=== PATIENT | male | born 1985 | race Caucasian/White ===

== ENCOUNTER 2016-11-06 14:23 | Emergency (ER) | payer SELFPAY ==
[2016-11-06 14:39] VITALS: BP 108/67
--- NOTE | 2016-11-06 15:04 | UC ---
Throat Pain/Nasal Anil HPI - HPI Summary HPI Summary: 30 YEAR OLD MALE PRESENTS WITH COMPLAINS OF SORE THROAT, FEVER, BODY ACHES AND CHILLS. - History of Current Complaint Chief Complaint: UCRespiratory Stated Complaint: SORE THROAT Time Seen by Provider: 11/06/16 15:04 Hx Obtained From: Patient Onset/Duration: Sudden Onset Severity: Moderate Pain Scale Used: 0-10 Numeric - 7 Cough: Nonproductive Associated Signs & Symptoms: Positive: Negative - Allergies/Home Medications Allergies/Adverse Reactions: Allergies Allergy/AdvReac Type Severity Reaction Status Date / Time No Known Allergies Allergy Verified 03/25/15 13:57 PMH/Surg Hx/FS Hx/Imm Hx Previously Healthy: Yes - Surgical History Surgical History: None - Family History Known Family History: Positive: None Negative: Hypertension, Diabetes - Social History Alcohol Use: Rare Substance Use Type: None Smoking Status (MU): Light Every Day Tobacco Smoker Type: Cigarettes Amount Used/How Often: 1 PACK Q 3 DAYS - 5-7 cigs day Have You Smoked in the Last Year: Yes Household Exposure Type: Cigarettes - Immunization History Most Recent Tetanus Shot: UTD Review of Systems Constitutional: Negative Skin: Negative Eyes: Negative ENT: Sore Throat, Nasal Discharge, Sinus Congestion Respiratory: Negative Cardiovascular: Negative Gastrointestinal: Negative Genitourinary: Negative Motor: Negative Neurovascular: Negative Musculoskeletal: Negative Neurological: Negative Psychological: Negative All Other Systems Reviewed And Are Negative: Yes Physical Exam Triage Information Reviewed: Yes Vital Signs: Initial Vital Signs Temp 37.4 C 11/06/16 14:37 Pulse 112 11/06/16 14:37 Resp 18 11/06/16 14:37 BP 108/67 11/06/16 14:37 Pulse Ox 99 11/06/16 14:37 Eye Exam: Normal ENT: Positive: Pharyngeal erythema, Nasal congestion, Nasal drainage, Tonsillar swelling Dental Exam: Normal Neck exam: Normal Neck: Positive: 1 Respiratory Exam: Normal Cardiovascular Exam: Normal Abdominal Exam: Normal Musculoskeletal Exam: Normal Neurological Exam: Normal Psychological Exam: Normal Skin Exam: Normal Throat Pain/Nasal Course/Dx - Differential Dx/Diagnosis Provider Diagnoses: STREPT THROAT. PHARYNGITIS Discharge - Discharge Plan Condition: Stable Disposition: HOME Prescriptions: Amoxicillin/Clavulanate TAB* [Augmentin TAB 875*] 875 mg PO BID #20 tab Magic M W2 Greyson/Maal/Nyst/Lido* 5 ml SWISH SPIT QID PRN #120 ml PRN Reason: Sore Throat Methylprednisolone [Medrol Dosepak 4 MG*] 4 mg PO .SEE GEE INSTRUCTION #21 tab Patient Education Materials: Tonsillitis (ED) Forms: *Work Release Referrals: No Primary Care Phys,NOPCP [Primary Care Provider] -
== END 2016-11-06 15:35 | disposition home or self-care (01) ==
LOC: UCEAST 14:23
DX: J02.0 Streptococcal pharyngitis (principal); F17.210 Nicotine dependence, cigarettes, uncomplicated
CPT/HCPCS: 87651; 99212; G0463

== ENCOUNTER 2017-06-10 09:12 | Emergency (ER) | payer SELFPAY ==
[2017-06-10 09:21] VITALS: BP 134/85
--- NOTE | 2017-06-10 12:16 | UC ---
Minh Terrazas Angela, scribed for Josué Parsons MD on 06/10/17 at 0932 . General HPI - HPI Summary HPI Summary: This pt is a 31 y/o male presenting to [facility] c/o sore throat for the last 3 days. Pt reports he has painful swallowing. Denies any difficulty swallowing. He is able to eat and drink but with throat pain. Denies fever, ear pain, swelling of tongue or lips, cough, SOB, chest pain. No PMHx. - History of Current Complaint Chief Complaint: UCRespiratory Stated Complaint: SORE THROAT, HEADACHE Time Seen by Provider: 06/10/17 09:18 Hx Obtained From: Patient Onset/Duration: Lasting Days, Still Present Timing: Constant Current Severity: Severe Pain Intensity: 7 Pain Location at: throat Aggravating: nothing Alleviating: nothing Associated Signs & Symptoms: Positive: Other - NEG: ear pain, swelling of tongue or lips. Negative: Cough, Chest Pain, Fever, SOB - Allergy/Home Medications Allergies/Adverse Reactions: Allergies Allergy/AdvReac Type Severity Reaction Status Date / Time No Known Allergies Allergy Verified 06/10/17 09:21 PMH/Surg Hx/FS Hx/Imm Hx Other Endocrine History: DENIES: diabetes Other Cardiovascular History: DENIES: HTN - Surgical History Surgical History: None - Family History Known Family History: Negative: Cardiac Disease, Hypertension, Diabetes - Social History Alcohol Use: Occasionally Substance Use Type: None Smoking Status (MU): Light Every Day Tobacco Smoker Type: Cigarettes Amount Used/How Often: 1 PACK Q 3 DAYS - 5-7 cigs day Have You Smoked in the Last Year: Yes Household Exposure Type: Cigarettes - Immunization History Most Recent Tetanus Shot: UTD Review of Systems Constitutional: Negative Skin: Negative Eyes: Negative ENT: Sore Throat Respiratory: Negative Cardiovascular: Negative Gastrointestinal: Negative Genitourinary: Negative Motor: Negative Neurovascular: Negative Musculoskeletal: Negative Neurological: Negative Psychological: Negative Is Patient Immunocompromised?: No All Other Systems Reviewed And Are Negative: Yes Physical Exam - Summary Physical Exam Summary: VITAL SIGNS: Reviewed. GENERAL: Patient is a well-developed and nourished male who is lying comfortable in the stretcher. Patient is not in any acute respiratory distress. HEAD AND FACE: Normocephalic EYES: PERRLA, EOMI x 2. EARS: Hearing grossly intact. MOUTH: There is pharyngeal erythema. No exudates. NECK: Supple, trachea is midline, no adenopathy, no JVD, no carotid bruit. CHEST: Symmetric, no tenderness at palpation LUNGS: Clear to auscultation bilaterally. No wheezing or crackles. CVS: Regular rate and rhythm, S1 and S2 present, no murmurs or gallops appreciated. ABDOMEN: Soft, non-tender. Bowel sounds are normal. No abdominal abnormal pulsations. EXTREMITIES: Full ROM in all major joints, no edema, no cyanosis or clubbing. NEURO: Alert and oriented x 3. No acute neurological deficits. Speech is normal and follows commands. SKIN: Dry and warm Triage Information Reviewed: Yes Vital Signs: Initial Vital Signs Temp 100.2 F 06/10/17 09:18 Pulse 84 06/10/17 09:18 Resp 16 06/10/17 09:18 BP 134/85 06/10/17 09:18 Pulse Ox 98 06/10/17 09:18 Vital Signs Reviewed: Yes Re-Evaluation - Re-Evaluation First Eval Re-Evaluation Time: 09:42 Comment: I reviewed the rapid strep test result with the pt. He will be discharged home. Course/Dx - Course Course Of Treatment: This pt is a 31 y/o male presenting to [facility] c/o sore throat for the last 3 days. Pt reports he has painful swallowing. Denies any difficulty swallowing. He is able to eat and drink but with throat pain. Denies fever, ear pain, swelling of tongue or lips, cough, SOB, chest pain. No PMHx. Rapid strep test is positive. Therefore pt will be discharged home with a prescription for amoxicillin. I discussed the test result with the patient. Pt was instructed to return to the urgent care or go to ER immediately if any of the symptoms return or worsens. Plan of care was discussed with the patient and pt understands and agrees. All questions were answered to patient satisfaction. Pt will be discharged to home with follow up from PCP. Pt is hemodynamically stable, alert and oriented x3. The patient was found to have increased blood pressure in UC. The patient will follow up with PCP for better control of BP. - Differential Dx - Multi-Symptom Provider Diagnoses: Strep throat Discharge - Sign-Out/Discharge Documenting (check all that apply): Discharge - discharge to home - Discharge Plan Condition: Stable Disposition: HOME Prescriptions: Amoxicillin PO (*) [Amoxicillin 875 MG (*)] 875 mg PO BID #20 tab Patient Education Materials: Strep Throat (DC) Referrals: [facility] PHYSICIAN REFERRAL [Outside] No Primary Care Phys,NOPCP [Primary Care Provider] - Additional Instructions: Take medications as instructed Increase your fluid intake Return to the UC if symptoms worsen The documentation as recorded by the Minh bustamante Angela accurately reflects the service I personally performed and the decisions made by me, Josué Parsons MD.
== END 2017-06-10 09:44 | disposition home or self-care (01) ==
LOC: UCEAST 09:12
DX: J02.0 Streptococcal pharyngitis (principal); F17.210 Nicotine dependence, cigarettes, uncomplicated
CPT/HCPCS: 87651; 99212; G0463

== ENCOUNTER 2019-02-06 16:55 | Emergency (ER) | payer SELFPAY ==
[2019-02-06 17:15] VITALS: BP 111/72
[2019-02-06] MEDS ORDERED: Ondansetron ODT TAB* 4 MG PO ONE (17:25)
--- NOTE | 2019-02-06 17:43 | UC ---
Abdominal Pain Male HPI - HPI Summary HPI Summary: 33 yo male with the onset of PATEL and myalgia on 02/04 now with abdominal pain (left sided) and vomiting x 7 which started today. no fever no cough rare runny nose no sore throat - History of Current Complaint Chief Complaint: UCHeadache Stated Complaint: VOMITING, FEVER, CHILLS Time Seen by Provider: 02/06/19 17:19 Hx Obtained From: Patient Onset/Duration: Gradual Onset, Lasting Days Timing: Constant Severity Initially: Moderate Severity Currently: Moderate Pain Intensity: 7 Pain Scale Used: 0-10 Numeric Location: Discrete At: LLQ Radiates: No Character: Cramping Aggravating Factor(s): Food Alleviating Factor(s): Nothing Associated Signs And Symptoms: Positive: Nausea, Vomiting - x7. Negative: Diaphoresis, Fever, Cough, Chest Pain, Dizzy, Back Pain, Constipation, Blood in Stool, Urinary Symptoms, Decreased Appetite - Allergies/Home Medications Allergies/Adverse Reactions: Allergies Allergy/AdvReac Type Severity Reaction Status Date / Time No Known Allergies Allergy Verified 02/06/19 17:15 PMH/Surg Hx/FS Hx/Imm Hx Previously Healthy: Yes - Surgical History Surgical History: Yes Surgery Procedure, Year, and Place: polyp removal from rectum as child - Family History Known Family History: Positive: Hypertension, Other - colon cancer, lung cancer Negative: Cardiac Disease, Diabetes - Social History Alcohol Use: None Substance Use Type: Marijuana Substance Use Comment - Amount & Last Used: weekly Smoking Status (MU): Light Every Day Tobacco Smoker Type: Cigarettes Amount Used/How Often: 1 PACK Q 3 DAYS - 5-7 cigs day Have You Smoked in the Last Year: Yes Household Exposure Type: Cigarettes - Immunization History Most Recent Tetanus Shot: UTD Review of Systems All Other Systems Reviewed And Are Negative: Yes Constitutional: Positive: Fatigue Skin: Positive: Negative Eyes: Positive: Negative ENT: Positive: Negative Respiratory: Positive: Negative Cardiovascular: Positive: Negative Gastrointestinal: Positive: Negative Motor: Positive: Negative Neurovascular: Positive: Negative Musculoskeletal: Positive: Negative Neurological: Positive: Negative Psychological: Positive: Negative Physical Exam Triage Information Reviewed: Yes Appearance: Well-Appearing, No Pain Distress, Well-Nourished Vital Signs: Initial Vital Signs Temp 99.6 F 02/06/19 17:10 Pulse 89 02/06/19 17:10 Resp 16 02/06/19 17:10 BP 111/72 02/06/19 17:10 Pulse Ox 97 02/06/19 17:10 Vital Signs Reviewed: Yes Eyes: Positive: Conjunctiva Clear ENT: Positive: Hearing grossly normal, TMs normal, Tonsillar swelling, Uvula midline. Negative: Pharyngeal erythema, Nasal congestion, Nasal drainage, Tonsillar exudate, Trismus, Muffled voice, Hoarse voice Neck: Positive: Supple, Nontender, No Lymphadenopathy Respiratory: Positive: Lungs clear, Normal breath sounds, No respiratory distress, No accessory muscle use Cardiovascular: Positive: RRR, No Murmur Musculoskeletal: Positive: ROM Intact, No Edema Neurological: Positive: Alert Psychological Exam: Normal Skin Exam: Normal Diagnostics - Laboratory Lab Results: UA : >1.030 SG Re-Evaluation - Re-Evaluation First Eval Re-Evaluation Time: 18:12 Change: Improved Comment: pain and nausea gone, wants to go home, declines IVF Abd Pain Male Course/Dx - Differential Dx/Clinical Impression Provider Diagnosis: Viral syndrome Discharge ED - Sign-Out/Discharge Documenting (check all that apply): Patient Departure All imaging exams completed and their final reports reviewed: No Studies - Discharge Plan Condition: Stable Disposition: HOME Prescriptions: Ondansetron TAB* [Zofran Tab*] 4 mg PO Q6H PRN #10 tab PRN Reason: Nausea Patient Education Materials: Viral Syndrome (ED) Forms: *Work Release Referrals: No Primary Care Phys,NOPCP [Primary Care Provider] - Additional Instructions: rest fluids tylenol recheck for new or worsening symptoms - Billing Disposition and Condition Condition: STABLE Disposition: Home
[2019-02-06 17:44] LABS: Influenza A Molecular NEGATIVE (Negative); Influenza B Molecular NEGATIVE (Negative)
== END 2019-02-06 18:26 | disposition home or self-care (01) ==
LOC: UCEAST 16:55
DX: B34.9 Viral infection, unspecified (principal); R51 Headache; M79.10 Myalgia, unspecified site; R10.9 Unspecified abdominal pain; R11.2 Nausea with vomiting, unspecified; R09.89 Other specified symptoms and signs involving the circulatory and respiratory systems; F17.210 Nicotine dependence, cigarettes, uncomplicated
CPT/HCPCS: 81003; 99212; A9270-GY; G0463